=== PATIENT | female | born 2000 | race Caucasian/White ===

== ENCOUNTER 2020-07-07 12:19 | Inpatient (IN) | payer MEDICAID, SELFPAY ==
[~2020-07-07] VITALS: Ht 149.9 cm; Wt 86.2 kg
[2020-07-07] MEDS ORDERED: OXYTOCIN/0.9 % SODIUM CHLORIDE 1,000 ML IV SCH (12:45)
[2020-07-07] MEDS ORDERED: LR 1,000 ML IV ONE (12:45)
[2020-07-07] MEDS ORDERED: NALBUPHINE HCL 10 MG/ML AMP IM PRN (12:45)
[2020-07-07] MEDS ORDERED: TERBUTALINE SULFATE 1 MG/ML VIAL SUBCUT ONE (12:45)
[2020-07-07 13:17] LABS: BASOPHILS # (AUTO) 0.1 K/uL (0.0-0.2); BASOPHILS % (AUTO) 1.2 % (0.0-2.0); EOSINOPHILS # (AUTO) 0.1 K/uL (0.0-0.4); EOSINOPHILS % (AUTO) 0.7 % (0.0-4.0); HEMATOCRIT 28.2 % (36-48); HEMOGLOBIN 9.2 g/dL (12.0-16.0); LYMPHOCYTES # (AUTO) 1.2 K/uL (1.0-5.5); LYMPHOCYTES % (AUTO) 12.7 % (20.5-51.5); MEAN CORPUSCULAR HEMOGLOBIN 23 pg (27-31); MEAN CORPUSCULAR HGB CONC 33 % (32-36); MEAN CORPUSCULAR VOLUME 70 fL (79.0-98.0); MONOCYTES # (AUTO) 0.8 K/uL (0.0-1.0); MONOCYTES % (AUTO) 8.2 % (1.7-9.3); NEUTROPHILS # (AUTO) 7.2 K/uL (1.8-7.7); NEUTROPHILS % (AUTO) 77.2 % (40.0-70.0); PLATELET COUNT (AUTO) 291 K/uL (130-430); RED BLOOD CELL COUNT(AUTO) 4.01 MIL/uL (4.2-6.2); RED CELL DISTRIBUTION WIDTH 20.7 % (9.0-15.0); WHITE BLOOD COUNT (AUTO) 9.4 K/uL (4.8-10.8)
[2020-07-07] MEDS ORDERED: AMPICILLIN SODIUM 2 GM VIAL ONE (13:44)
[2020-07-07] MEDS ORDERED: AMPICILLIN SODIUM 2 GM in NS 100 ML IV ONE (13:45)
[2020-07-07 13:46] VITALS: BP_SYST 117
[2020-07-07] MEDS: LR 1,000 ML IV SCH (13:52)
[2020-07-07] MEDS ORDERED: fentaNYL CITRATE/PF 100 MCG/2 ML AMP ONE (16:46)
[2020-07-07] MEDS ORDERED: ROPIVACAINE HCL/PF 0.2% 200 ML ONE (16:46)
[2020-07-07] MEDS ORDERED: DIPHENHYDRAMINE INJ 50 MG/ML VIAL IVP PRN (17:45)
[2020-07-07] MEDS ORDERED: FENT2mCg/mL-ROPIVA0.2%/NS EPID 200 ML EP SCH (17:45)
[2020-07-07] MEDS ORDERED: NALOXONE HCL 0.4 MG/ML AMP (NARCAN) IVP PRN (17:45)
[2020-07-07] MEDS ORDERED: ONDANSETRON HCL 4 MG/2 ML VIAL IVP PRN (17:45)
[2020-07-07] MEDS: AMPICILLIN SODIUM 1 GM in NS 50 ML IV SCH ×2 (18:04→22:00)
[2020-07-07] MEDS ORDERED: NALBUPHINE HCL 10 MG/ML AMP IVP PRN (21:00)
[2020-07-08] MEDS: NALBUPHINE HCL 10 MG/ML AMP IVP PRN ×2 (01:16→04:21)
[2020-07-08] MEDS: AMPICILLIN SODIUM 1 GM in NS 50 ML IV SCH ×3 (02:00→10:32)
[2020-07-08] MEDS ORDERED: ACETAMINOPHEN 325 MG TABLET PO PRN ×2 (04:15→04:19)
[2020-07-08] MEDS ORDERED: ROPIVACAINE HCL/PF 0.2% 200 ML ONE (06:01)
[2020-07-08] MEDS ORDERED: fentaNYL CITRATE/PF 100 MCG/2 ML AMP ONE (06:01)
[2020-07-08] MEDS: LR 1,000 ML IV SCH ×2 (08:08→11:10)
[2020-07-08] MEDS ORDERED: CEFAZOLIN 2 GM IVPB PREMIX 50 ML IV ONE (10:15)
[2020-07-08] MEDS ORDERED: TERBUTALINE SULFATE 1 MG/ML VIAL ONE (11:04)
[2020-07-08 13:04] VITALS: BP_SYST 107
[2020-07-08] MEDS ORDERED: ONDANSETRON HCL 4 MG/2 ML VIAL ONE (13:08)
[2020-07-08] MEDS ORDERED: NS IRRIG SOLN 1000 ML IR ONE (13:08)
[2020-07-08] MEDS ORDERED: OXYTOCIN/0.9 % SODIUM CHLORIDE 20 UNITS/1,000 ML BAG IV ONE (13:08)
[2020-07-08] MEDS ORDERED: MORPHINE SULFATE 10MG/10ML PF AMP ONE (13:08)
[2020-07-08] MEDS ORDERED: LR 1,000 ML IV.SOLN IV ONE (13:08)
[2020-07-08] MEDS ORDERED: BUPIVACAINE /PF 0.75% 10 ML VIAL INJ ONE (13:08)
[2020-07-08] MEDS ORDERED: MORPHINE SULFATE 10MG/10ML PF AMP SP SCH (13:15)
[2020-07-08] MEDS ORDERED: KETOROLAC TROMETHAMINE 60 MG/2 ML VIAL IM PRN (13:15)
[2020-07-08] MEDS ORDERED: ONDANSETRON HCL 4 MG/2 ML VIAL IVP PRN (13:15)
[2020-07-08] MEDS ORDERED: NALOXONE HCL 0.4 MG/ML AMP (NARCAN) IVP PRN (13:15)
[2020-07-08] MEDS ORDERED: DIPHENHYDRAMINE INJ 50 MG/ML VIAL IM PRN (13:15)
[2020-07-08] MEDS ORDERED: MEPERIDINE HCL/PF 25 MG/ML DISP.SYRIN ONE (13:40)
[2020-07-08] MEDS ORDERED: MEPERIDINE HCL/PF 25 MG/ML DISP.SYRIN IVP ONE (13:45)
[2020-07-08] MEDS ORDERED: BISACODYL 10 MG/SUPPOSITORY RC PRN (16:15)
[2020-07-08] MEDS ORDERED: RHO(D) IMMUNE GLOBULIN/MALTOSE 1500 UNITS/1.3 ML (WINHRO) IM PRN (16:15)
[2020-07-08] MEDS ORDERED: ANUSOL 1 EA SUPP.RECT (PREPARATION H) RC PRN (16:15)
[2020-07-08] MEDS ORDERED: LR 1,000 ML IV SCH (16:15)
[2020-07-08] MEDS ORDERED: OXYTOCIN/0.9 % SODIUM CHLORIDE 1,000 ML IV ONE (16:15)
[2020-07-08] MEDS ORDERED: MEASLES,MUMPS&RUBELLA VACC/PF 12500 UNIT/0.5 ML VIAL SUBQ PRN (16:15)
[2020-07-08] MEDS ORDERED: LANOLIN 7 GM OINT. TP PRN (16:15)
[2020-07-08] MEDS ORDERED: DIPH-TET-PERTUS Vaccine 0.5 ML VIAL (ADACEL) I.M. PRN (16:15)
[2020-07-08] MEDS ORDERED: KETOROLAC TROMETHAMINE 30 MG VIAL IM SCH (18:00)
[2020-07-08] MEDS: CEFAZOLIN 1 GM IVPB PREMIX 50 ML IV SCH ×2 (18:26→23:33)
[2020-07-08] MEDS ORDERED: TEMAZEPAM 15 MG CAPSULE PO PRN (21:00)
[2020-07-08] MEDS: DOCUSATE SODIUM 100 MG CAPSULE PO PRN (23:32)
[2020-07-08] MEDS: SIMETHICONE 80 MG TAB.CHEW PO PRN (23:32)
[2020-07-08] MEDS: KETOROLAC TROMETHAMINE 30 MG VIAL IVP SCH (23:33)
[2020-07-09] MEDS: KETOROLAC TROMETHAMINE 30 MG VIAL IVP SCH ×2 (06:17→12:06)
[2020-07-09] MEDS: DOCUSATE SODIUM 100 MG CAPSULE PO PRN ×2 (06:17→18:19)
[2020-07-09] MEDS: CEFAZOLIN 1 GM IVPB PREMIX 50 ML IV SCH (06:17)
[2020-07-09] MEDS: SIMETHICONE 80 MG TAB.CHEW PO PRN ×4 (06:17→20:34)
[2020-07-09] MEDS ORDERED: HYDROcodone/ACETAMIN 5-325 MG TAB (NORCO/ VICODIN) PO PRN (07:00)
[2020-07-09 07:34] LABS: BASOPHILS % (AUTO) 0.4 % (0.0-2.0); EOSINOPHILS % (AUTO) 0.1 % (0.0-4.0); HEMOGLOBIN 7.2 g/dL (12.0-16.0); LYMPHOCYTES % (AUTO) 10.4 % (20.5-51.5); MEAN CORPUSCULAR HEMOGLOBIN 23 pg (27-31); MEAN CORPUSCULAR HGB CONC 33 % (32-36); MEAN CORPUSCULAR VOLUME 70 fL (79.0-98.0); MONOCYTES # (AUTO) 0.6 K/uL (0.0-1.0); MONOCYTES % (AUTO) 6.5 % (1.7-9.3); NEUTROPHILS # (AUTO) 7.8 K/uL (1.8-7.7); NEUTROPHILS % (AUTO) 82.6 % (40.0-70.0); PLATELET COUNT (AUTO) 226 K/uL (130-430); RED BLOOD CELL COUNT(AUTO) 3.11 MIL/uL (4.2-6.2); WHITE BLOOD COUNT (AUTO) 9.5 K/uL (4.8-10.8)
[2020-07-09] MEDS ORDERED: IBUPROFEN 600 MG TABLET PO SCH (12:00)
[2020-07-09 12:43] LABS: HEMATOCRIT 21.9 % (36-48)
[2020-07-09] MEDS: FERROUS SULFATE 325 MG TABLET.DR PO SCH ×2 (15:18→20:35)
[2020-07-09] MEDS: IBUPROFEN 600 MG TABLET PO SCH ×2 (18:19→23:37)
[2020-07-09] MEDS: SENNOSIDES/DOCUSATE SODIUM 1 TAB TABLET(SENOKOT-S) PO PRN (18:19)
[2020-07-09] MEDS: OXYCODONE/ACETAMINOPHEN 5-325 TABLET PO PRN ×3 (20:35→21:55)
[2020-07-10] MEDS: OXYCODONE/ACETAMINOPHEN 5-325 TABLET PO PRN ×5 (00:06→23:59)
[2020-07-10] MEDS: IBUPROFEN 600 MG TABLET PO SCH ×4 (06:03→23:56)
[2020-07-10] MEDS: FERROUS SULFATE 325 MG TABLET.DR PO SCH ×3 (09:06→23:59)
[2020-07-10] MEDS: DOCUSATE SODIUM 100 MG CAPSULE PO PRN (09:06)
[2020-07-10] MEDS: SIMETHICONE 80 MG TAB.CHEW PO PRN ×2 (12:01→17:53)
[2020-07-11] MEDS: OXYCODONE/ACETAMINOPHEN 5-325 TABLET PO PRN ×5 (05:56→23:52)
[2020-07-11] MEDS: IBUPROFEN 600 MG TABLET PO SCH ×4 (05:57→23:53)
[2020-07-11] MEDS: DOCUSATE SODIUM 100 MG CAPSULE PO PRN ×2 (06:20→18:28)
[2020-07-11] MEDS: SIMETHICONE 80 MG TAB.CHEW PO PRN ×4 (08:57→23:52)
[2020-07-11] MEDS: FERROUS SULFATE 325 MG TABLET.DR PO SCH ×3 (08:57→20:56)
[2020-07-11] MEDS: SENNOSIDES/DOCUSATE SODIUM 1 TAB TABLET(SENOKOT-S) PO PRN (20:57)
[2020-07-12] MEDS: OXYCODONE/ACETAMINOPHEN 5-325 TABLET PO PRN ×3 (06:20→17:32)
[2020-07-12] MEDS: IBUPROFEN 600 MG TABLET PO SCH ×3 (06:20→17:32)
[2020-07-12] MEDS: SIMETHICONE 80 MG TAB.CHEW PO PRN (06:21)
[2020-07-12] MEDS: DOCUSATE SODIUM 100 MG CAPSULE PO PRN (06:21)
[2020-07-12] MEDS: FERROUS SULFATE 325 MG TABLET.DR PO SCH (10:04)
== END 2020-07-12 18:20 | disposition home or self-care (01) | DRG 540 ==
LOC: SPU 12:19 → OBSVTOIN 12:19
PROVIDERS: ADMIT Obstetrics & Gynecology; ATTEND Obstetrics & Gynecology
PROC: 10D00Z1 Extraction of Products of Conception, Low, Open Approach (ICD-10-PCS; principal; 2020-07-08 12:30)
DX: O62.2 Other uterine inertia (principal); O33.9 Maternal care for disproportion, unspecified; Z20.828 Contact with and (suspected) exposure to other viral communicable diseases; Z37.0 Single live birth; Z86.32 Personal history of gestational diabetes
CPT/HCPCS: 36415; 76805-TC; 81002-TC; 82947-TC; 82962; 85025; 86592; 86886; 86900; 86901; 94760; J0290; J0690; J1885; J2175; J2274; J2300; J2405; J2590; J3010; J3105; J3490; J7120